=== PATIENT | male | born 1960 | race Caucasian/White ===

== ENCOUNTER 2017-06-17 05:37 | Inpatient (IN) | payer BC ==
[2017-06-17] MEDS: VANCOMYCIN 1 GM 250 ML IVPB (06:10)
[2017-06-17] MEDS: LACTATED RINGER'S 1,000 ML IV* (06:10)
[2017-06-17] MEDS ORDERED: CEFAZOLIN 1 GM INJ (07:00)
[2017-06-17] MEDS ORDERED: SUGAMMADEX SODIUM 200 MG/2 ML VIAL IV (07:00)
[2017-06-17] MEDS ORDERED: ONDANSETRON 4 MG INJ IV (07:00)
[2017-06-17] MEDS ORDERED: PROPOFOL 20 ML (07:00)
[2017-06-17] MEDS ORDERED: CYCLOBENZAPRINE 10 MG TAB PO (07:00)
[2017-06-17] MEDS ORDERED: ZOLPIDEM 5 MG TAB PO (07:00)
[2017-06-17] MEDS ORDERED: HYDROmorphONE 0.5 MG/0.5 ML SYG IV (07:00)
[2017-06-17] MEDS ORDERED: GLYCOPYRROLATE 0.4 MG INJ (07:00)
[2017-06-17] MEDS ORDERED: DIPHENHYDRAMINE 50 MG INJ IV ×2 (07:00→08:00)
[2017-06-17] MEDS ORDERED: NEOSTIGMINE 3 MG/3 ML SYRINGE (07:00)
[2017-06-17] MEDS ORDERED: NALOXONE (0.4 MG/ML) INJ IV (07:00)
[2017-06-17] MEDS ORDERED: ACETAMINOPHEN 325 MG TAB PO (07:00)
[2017-06-17] MEDS ORDERED: ROCURONIUM 50 MG INJ (07:00)
[2017-06-17] MEDS ORDERED: BISACODYL 10 MG SUPP PR (07:00)
[2017-06-17] MEDS ORDERED: CEPASTAT LOZENGE MT (07:00)
[2017-06-17] MEDS ORDERED: AL HYDROX/MG HYDROX/SIMETH 30 ML CUP PO (07:00)
[2017-06-17] MEDS ORDERED: MIDAZOLAM 1 MG/ML 2 ML INJ (07:01)
[2017-06-17] MEDS ORDERED: ONDANSETRON 4 MG INJ (07:01)
[2017-06-17] MEDS ORDERED: DEXAMETHASONE 4 MG/ML 1 ML INJ (07:02)
[2017-06-17] MEDS ORDERED: HEPARIN 1000 UNITS/ML 10 ML INJ (07:03)
[2017-06-17] MEDS ORDERED: CA CHLORIDE 10% 10 ML SYRINGE (07:03)
[2017-06-17] MEDS: SURGIFOAM POWDER 1 GM KIT (07:54)
[2017-06-17] MEDS: LIDOCAINE 1%/EPI 30 ML INJ (07:55)
[2017-06-17] MEDS: THROMBIN 5000 UNIT VIAL (07:55)
[2017-06-17] MEDS: POLYMYXIN/BACITRACIN 1L IRRIG (07:55)
[2017-06-17] MEDS: SODIUM CL BACTERIOSTATIC 30 ML INJ (07:56)
[2017-06-17] MEDS ORDERED: HYDROmorphONE (0.2 MG/ML) 10ML SYG IV ×3 (08:00)
[2017-06-17] MEDS ORDERED: OXYCODONE/ACETAMINOPHEN (5/325) TAB PO ×2 (08:00)
[2017-06-17] MEDS ORDERED: TRIMETHOBENZAMIDE 100 MG/ML VIAL IM (08:00)
[2017-06-17] MEDS ORDERED: IPRATROPIUM (NEB) 0.5 MG/2.5 ML AMP HHN (08:00)
[2017-06-17] MEDS ORDERED: FENTAnyl 50 MCG/ML VIAL IV ×3 (08:00)
[2017-06-17] MEDS ORDERED: MIDAZOLAM 1 MG/ML 2 ML INJ IV (08:00)
[2017-06-17] MEDS ORDERED: ALBUTEROL 0.083% (NEB) 2.5 MG/3 ML AMP HHN (08:00)
[2017-06-17] MEDS ORDERED: MEPERIDINE 25 MG INJ IV (08:00)
[2017-06-17] MEDS ORDERED: EPHEDrine SULFATE 50 MG/5 ML SYG IV (08:00)
[2017-06-17] MEDS ORDERED: LABETALOL HCL 20MG INJ IV (08:00)
[2017-06-17] MEDS ORDERED: hydrALAzine 20 MG INJ IV (08:00)
[2017-06-17] MEDS: BUPIVACAINE 0.25% (MPF) 30 ML INJ (08:22)
[2017-06-17] MEDS: DOCUSATE SODIUM 100 MG CAP PO ×2 (09:00→21:06)
[2017-06-17] MEDS: HYDROmorphONE 0.2 MG/ML PCA IV (09:10)
[2017-06-17] MEDS: ONDANSETRON 4 MG INJ IV (09:14)
[2017-06-17] MEDS: D5W-0.45 NACL + KCL 20 MEQ 1,000 ML IV ×2 (10:12→16:57)
[2017-06-17] MEDS: VANCOMYCIN 1 GM (PMX) 250 ML IVPB (17:09)
[2017-06-18] MEDS: D5W-0.45 NACL + KCL 20 MEQ 1,000 ML IV ×2 (02:10→12:00)
[2017-06-18 05:13] LABS: ADD MAN DIFF? NO
[2017-06-18 05:20] LABS: WHITE BLOOD COUNT 11.7 10^3/ul (4.8-10.8)
[2017-06-18 05:20] LABS: BASOPHILS % 0.2 % (0.0-2.0); EOSINOPHILS % 0.2 % (0.0-7.0); HEMATOCRIT 38.5 % (42.0-52.0); HEMOGLOBIN 12.8 g/dl (14.0-18.0); LYMPHOCYTES # 1.2 10^3/ul (0.8-2.9); LYMPHOCYTES % 9.8 % (15.0-51.0); MEAN CORPUSCULAR HEMOGLOBIN 33.2 pg (29.0-33.0); MEAN CORPUSCULAR HGB CONC 33.2 g/dl (32.0-37.0); MEAN CORPUSCULAR VOLUME 99.7 fl (82.0-101.0); MEAN PLATELET VOLUME 9.8 fl (7.4-10.4); MONOCYTE # 0.8 10^3/ul (0.3-0.9); MONOCYTES % 6.5 % (0.0-11.0); NEUTROPHIL # 9.7 10^3/ul (1.6-7.5); NEUTROPHILS % 82.8 % (39.0-77.0); PLATELET COUNT 226 10^3/UL (140-415); RED BLOOD COUNT 3.86 10^6/ul (4.70-6.10); RED CELL DISTRIBUTION WIDTH 14.1 % (11.5-14.5)
[2017-06-18 05:36] LABS: ANION GAP 11 (8-16); BLOOD UREA NITROGEN 14 mg/dl (7-20); CARBON DIOXIDE 29 mmol/L (21-31); CHLORIDE 104 mmol/L (97-110); CREATININE 0.86 mg/dl (0.61-1.24); GLUCOSE 133 mg/dl (70-220); MAGNESIUM 1.9 mg/dl (1.7-2.5); POTASSIUM 4.5 mmol/L (3.5-5.1); SODIUM 139 mmol/L (135-144)
[2017-06-18] MEDS: PANTOPRAZOLE (EC) 40 MG TAB PO (06:34)
[2017-06-18] MEDS: VANCOMYCIN 1 GM (PMX) 250 ML IVPB (06:34)
[2017-06-18] MEDS: DOCUSATE SODIUM 100 MG CAP PO (09:05)
[2017-06-18] MEDS ORDERED: HYDROCODONE/APAP (10/325) TAB PO ×2 (09:30)
== END 2017-06-18 13:22 | disposition home or self-care (01) | DRG 520 ==
LOC: REC 05:37 → MS1 10:01
PROC: 0SB20ZZ Excision of Lumbar Vertebral Disc, Open Approach (ICD-10-PCS; principal; 2017-06-17 07:00)
PROC: 4A11X4G Monitoring of Peripheral Nervous Electrical Activity, Intraoperative, External Approach (ICD-10-PCS; 2017-06-17 07:00)
DX: M51.16 Intervertebral disc disorders with radiculopathy, lumbar region (principal); F17.210 Nicotine dependence, cigarettes, uncomplicated; Z85.038 Personal history of other malignant neoplasm of large intestine; Z88.0 Allergy status to penicillin
CPT/HCPCS: 72020; 80048; 83735; 85025; 86999; 88304; 97116; 97161; 97530